=== PATIENT | female | born 1995 | race Caucasian/White ===

== ENCOUNTER 2019-07-05 18:07 | Emergency (ER) | payer OTHER ==
[~2019-07-05] VITALS: Ht 167.6 cm; Wt 62.5 kg
[2019-07-05 18:45] LABS: BASO # 0.1 10^3/uL (0.0-0.2); BASO % 1.7 % (0.0-1.0); EOS # 0.2 10^3/uL (0.0-0.5); EOS % 3.3 % (0.0-3.0); HEMATOCRIT 40.2 % (36.0-47.0); HEMOGLOBIN 13.3 g/dl (12.0-15.5); LYMPH # 2.8 10^3/uL (1.5-5.0); LYMPH % 48.9 % (24.0-44.0); MEAN CORPUSCULAR HEMOGLOBIN 30.8 pg (27.0-33.0); MEAN CORPUSCULAR HGB CONC 33.1 g/dl (32.0-36.5); MEAN CORPUSCULAR VOLUME 93.1 fl (80.0-96.0); MONO # 0.4 10^3/uL (0.0-0.8); MONO % 6.5 % (0.0-5.0); NEUTROPHILS # 2.3 10^3/uL (1.5-8.5); NEUTROPHILS % 39.4 % (36.0-66.0); PLATELET COUNT, AUTOMATED 243 10^3/uL (150-450); RED BLOOD COUNT 4.32 10^6/uL (4.00-5.40); WHITE BLOOD COUNT 5.7 10^3/uL (4.0-10.0)
[2019-07-05 19:22] LABS: BLOOD UREA NITROGEN 16 MG/DL (7-18); CALCIUM LEVEL 9.5 MG/DL (8.5-10.1); CARBON DIOXIDE LEVEL 32 MEQ/L (21-32); CHLORIDE LEVEL 105 MEQ/L (98-107); CREATININE FOR GFR 0.73 MG/DL (0.55-1.30); FREE T4 0.89 NG/DL (0.76-1.46); GLOMERULAR FILTRATION RATE > 60.0 (>60); GLUCOSE, FASTING 74 MG/DL (70-100); MAGNESIUM LEVEL 2.3 MG/DL (1.8-2.4); POTASSIUM SERUM 4.5 MEQ/L (3.5-5.1); SODIUM LEVEL 142 MEQ/L (136-145)
[2019-07-05 19:42] LABS: HCG, SERUM QUALITATIVE NEGATIVE (NEGATIVE)
--- NOTE | 2019-07-05 19:47 | ECGEPIP ---
[facility] - ED Test Date: 2019-07-05 Pat Name: JUAN QUIJANO Department: Room: - Gender: Female Stitcher Hand: : 1995 Requested By: AREN STANLEY Order Number: [id number] Reading MD: Usama Michael Measurements Intervals [place] Rate: 60 P: 63 ND: 172 QRS: 74 QRSD: 89 T: 58 QT: 418 QTc: 419 Interpretive Statements SINUS RHYTHM WITH SINUS ARRHYTHMIA BENIGN EARLY REPOLARIZATION NO PRIORS FOR COMPARISON Electronically Signed on 07-05-2019 19:47:23 EDT by Usama Michael
[2019-07-05 20:31] VITALS: BP 105/56
--- NOTE | 2019-07-06 11:23 | REP ---
REASON: Syncopal episode. CHEST PORTABLE: FINDINGS: The technique utilized in obtaining the radiograph has magnified the cardiac silhouette and accentuated the interstitial markings. The superior mediastinal structures are midline. The cardiac silhouette is unremarkable in size, shape, and position. The diaphragmatic surfaces of the lungs are regular, and the costophrenic angles are clear. The pulmonary panda are clear. The imaged osseous structures are intact. IMPRESSION: There is no acute cardiopulmonary disease. Electronically Signed by Helder Kelly DO 07/06/2019 12:21 P
== END 2019-07-05 21:19 | disposition home or self-care (01) ==
LOC: M ED 18:07
DX: R00.2 Palpitations (principal); J45.909 Unspecified asthma, uncomplicated; Z82.49 Family history of ischemic heart disease and other diseases of the circulatory system

== ENCOUNTER 2020-03-07 14:00 | Emergency (ER) | payer OTHER ==
[~2020-03-07] VITALS: Ht 165.1 cm; Wt 61.7 kg
[2020-03-07 15:28] VITALS: BP 101/70
--- NOTE | 2020-03-09 10:01 | ECGEPIP ---
[facility] - ED Test Date: 2020-03-07 Pat Name: JUAN QUIJANO Department: Room: - Gender: Female Road Crossing Guard: : 1995 Requested By: Shima Hassan Order Number: [id number] Reading MD: Usama Michael Measurements Intervals [place] Rate: 52 P: 42 MD: 158 QRS: 75 QRSD: 77 T: 64 QT: 445 QTc: 417 Interpretive Statements SINUS BRADYCARDIA WITH SINUS ARRHYTHMIA SIMILAR TO 07/05/19 Electronically Signed on 03-09-2020 10:00:36 EST by Usama Michael
== END 2020-03-07 15:29 | disposition home or self-care (01) ==
LOC: M ED 14:00
DX: I49.3 Ventricular premature depolarization (principal); R00.2 Palpitations; R00.1 Bradycardia, unspecified; J45.909 Unspecified asthma, uncomplicated; Z87.891 Personal history of nicotine dependence; Z91.013 Allergy to seafood

== ENCOUNTER → 2022-06-08 | Outpatient (REF) | payer OTHER ==
[~2022-06-08] MED LIST: BENA25CA4 PO; EPIP0.3I2 IM; ETON68IM SC; PEPC1TAB5 PO; PRED20TA PO
[2022-06-08 18:05] LABS: HEMATOCRIT 42.2 % (36.0-47.0); HEMOGLOBIN 14.1 g/dl (12.0-15.5); MEAN CORPUSCULAR HGB CONC 33.4 g/dl (32.0-36.5); MEAN CORPUSCULAR VOLUME 92.7 fl (80.0-96.0); PLATELET COUNT, AUTOMATED 228 10^3/uL (150-450); RED BLOOD COUNT 4.55 10^6/uL (4.00-5.40); WHITE BLOOD COUNT 7.1 10^3/uL (4.0-10.0)
[2022-06-08 18:34] LABS: ALBUMIN 3.9 G/DL (3.2-5.2); ALKALINE PHOSPHATASE 44 U/L (46-116); ALT/SGPT 24 U/L (7.0-40); AST/SGOT 32 U/L (<34); BLOOD UREA NITROGEN 19 MG/DL (9-23); CALCIUM LEVEL 9.4 MG/DL (8.5-10.1); CARBON DIOXIDE LEVEL 27 MMOL/L (20-31); CHLORIDE LEVEL 104 MMOL/L (98-107); CHOLESTEROL LEVEL 139 MG/DL (<200); CHOLESTEROL RISK RATIO 2.68 (<5); CREATININE FOR GFR 0.72 MG/DL (0.55-1.30); GLOMERULAR FILTRATION RATE > 60.0 (>60); GLUCOSE, FASTING 75 MG/DL (60-100); HDL CHOLESTEROL 51.8 MG/DL (>40); NON-HDL-C 87 MG/DL; POTASSIUM SERUM 4.7 MMOL/L (3.5-5.1); SODIUM LEVEL 138 MMOL/L (136-145)
[2022-06-08 22:15] LABS: LDL CHOLESTEROL 78.4 MG/DL (<100); TOTAL PROTEIN 6.9 G/DL (5.7-8.2); TRIGLYCERIDES LEVEL 44 MG/DL (<150)
[2022-06-08 22:51] LABS: HEPATITIS C VIRUS ABY INDEX 0.3 INDEX (<0.8)
== END ==
LOC: M LAB REF 16:46
PROVIDERS: ATTEND Physician Assistant
DX: Z76.89 Persons encountering health services in other specified circumstances (principal); Z13.220 Encounter for screening for lipoid disorders; E66.3 Overweight; Z13.0 Encounter for screening for diseases of the blood and blood-forming organs and certain disorders involving the immune mechanism; Z83.3 Family history of diabetes mellitus; Z13.1 Encounter for screening for diabetes mellitus; Z11.59 Encounter for screening for other viral diseases

== ENCOUNTER → 2022-06-29 | Outpatient (CLI) | payer OTHER ==
[2022-06-29 13:45] LABS: BASO # 0.1 10^3/uL (0.0-0.2); BASO % 1.6 % (0.0-1.0); EOS # 0.1 10^3/uL (0.0-0.5); EOS % 2.3 % (0.0-3.0); HEMATOCRIT 45.3 % (36.0-47.0); HEMOGLOBIN 14.7 g/dl (12.0-15.5); LYMPH # 1.8 10^3/uL (1.5-5.0); LYMPH % 34.4 % (24.0-44.0); MEAN CORPUSCULAR HEMOGLOBIN 29.9 pg (27.0-33.0); MEAN CORPUSCULAR HGB CONC 32.5 g/dl (32.0-36.5); MEAN CORPUSCULAR VOLUME 92.3 fl (80.0-96.0); MONO # 0.4 10^3/uL (0.0-0.8); MONO % 7.2 % (2.0-8.0); NEUTROPHILS # 2.8 10^3/uL (1.5-8.5); NEUTROPHILS % 54.3 % (36.0-66.0); PLATELET COUNT, AUTOMATED 224 10^3/uL (150-450); RED BLOOD COUNT 4.91 10^6/uL (4.00-5.40); WHITE BLOOD COUNT 5.2 10^3/uL (4.0-10.0)
[2022-06-29 14:19] LABS: ALBUMIN 3.9 G/DL (3.2-5.2); ALKALINE PHOSPHATASE 47 U/L (46-116); ALT/SGPT 19 U/L (7.0-40); AST/SGOT 14 U/L (<34); BILIRUBIN,TOTAL 0.8 MG/DL (0.3-1.2); BLOOD UREA NITROGEN 23 MG/DL (9-23); CALCIUM LEVEL 9.1 MG/DL (8.5-10.1); CARBON DIOXIDE LEVEL 29 MMOL/L (20-31); CHLORIDE LEVEL 104 MMOL/L (98-107); CREATININE FOR GFR 0.65 MG/DL (0.55-1.30); GLOMERULAR FILTRATION RATE > 60.0 (>60); GLUCOSE, FASTING 83 MG/DL (60-100); GLUCOSE,RANDOM 83 MG/DL (LESS THAN 200); SODIUM LEVEL 140 MMOL/L (136-145)
[2022-06-29 14:20] LABS: FREE T3 3.5 PG/ML (2.3-4.2); FREE T4 1.04 NG/DL (0.89-1.76); THYROXINE (T4) 8.6 UG/DL (4.5-10.9)
[2022-06-29 14:21] LABS: LUTEINIZING HORMONE 7.7 mIU/ML; PROLACTIN 3.92 NG/ML
[2022-06-29 14:22] LABS: TESTOSTERONE 28 NG/DL (14-76); THYROID STIMULATING HORMONE 1.277 uIU/ML (0.55-4.78)
[2022-06-29 15:12] LABS: HCG, SERUM QUALITATIVE NEGATIVE (NEGATIVE)
== END ==
LOC: M LAB 12:01
PROVIDERS: ATTEND Nurse Practitioner Family
DX: N92.6 Irregular menstruation, unspecified (principal); Z79.899 Other long term (current) drug therapy

== ENCOUNTER 2022-10-30 10:44 | Emergency (ER) | payer OTHER ==
[~2022-10-30] VITALS: Ht 167.6 cm; Wt 73.3 kg
[2022-10-30 10:44] VITALS: BP 112/71; TEMP 98.2; O2SAT 100
[2022-10-30] MEDS ORDERED: ALBU8.5H (11:43)
[2022-10-30] MEDS ORDERED: LARI1TAB3 (11:43)
[2022-10-30] MEDS ORDERED: TACR0.1O (11:43)
== END 2022-10-30 14:12 | disposition left against medical advice (07) ==
LOC: M ED 10:44
DX: Z53.21 Procedure and treatment not carried out due to patient leaving prior to being seen by health care provider (principal)